=== PATIENT | female | born 2005 | race Caucasian/White ===

== ENCOUNTER 2023-12-10 00:10 | Emergency (ER) | payer BC ==
[2023-12-10] MEDS: Lidocaine 1% 10 ML MDV INJECT ONE (00:42)
[2023-12-10] MEDS: Bacitracin Oint 1 GM U/D Packet TOP ONE (00:55)
== END 2023-12-10 01:02 | disposition home or self-care (01) ==
LOC: VM.ED 00:10
DX: S61.212A Laceration without foreign body of right middle finger without damage to nail, initial encounter (principal); W25.XXXA Contact with sharp glass, initial encounter
CPT/HCPCS: 12001; 99282; 99283; J3490